=== PATIENT | male | born 1965 | race Caucasian/White ===

== ENCOUNTER 2023-11-06 07:50 | Outpatient (CLI) | payer OTHER, SELFPAY | END 2023-11-06 07:51 | disposition home or self-care (01) | LOC: NFLDREF 11-07 06:43 | PROVIDERS: PCP Family Medicine; Referring Provider Family Medicine; Visit Provider Family Medicine | DX: Z00.00 Encounter for general adult medical examination without abnormal findings (principal); E78.5 Hyperlipidemia, unspecified; Z12.5 Encounter for screening for malignant neoplasm of prostate | CPT/HCPCS: 80053; 80061; 84153 ==

== ENCOUNTER 2024-12-03 07:47 | Outpatient (CLI) | payer BC, SELFPAY | END 2024-12-03 07:48 | disposition home or self-care (01) | LOC: NFLDREF 12-13 00:14 | PROVIDERS: PCP Family Medicine; Referring Provider Family Medicine; Visit Provider Family Medicine | DX: E78.5 Hyperlipidemia, unspecified (principal); Z12.5 Encounter for screening for malignant neoplasm of prostate | CPT/HCPCS: 80053; 80061; G0103 ==

== ENCOUNTER 2024-12-28 08:45 | Outpatient (CLI) | payer BC, SELFPAY ==
--- NOTE | 2024-12-28 10:28 | P.ANES_ITS ---
Anesthesia Charges Start Date/Time Anesthesia Start Date: 12/28/24 Anesthesia Start Time: 09:52 Stop Date/Time Anesthesia Stop Date: 12/28/24 Anesthesia Stop Time: 10:22 Coding CPT Codes CPT Codes: PRO LWR INTST NDSC NOS - [id number] ([id number]) P2 - PATIENT W/MILD SYST DISEASE, QK - HOT KNIFE CUTTER 2-4 CNCRNT ANES PROC, QX - FUR REMODELER SVC W/ MD MED DIRECTION
--- NOTE | 2024-12-28 10:28 | W.ANESCHARGE ---
Anesthesia Charges Start Date/Time Anesthesia Start Date: 12/28/24 Anesthesia Start Time: 09:52 Stop Date/Time Anesthesia Stop Date: 12/28/24 Anesthesia Stop Time: 10:22 Coding CPT Codes CPT Codes: PRO LWR INTST NDSC NOS - [id number] ([id number]) P2 - PATIENT W/MILD SYST DISEASE, QK - ELECTRIC BLASTING CAP ASSEMBLER 2-4 CNCRNT ANES PROC, QX - BILINGUAL TEACHER AIDE SVC W/ MD MED DIRECTION
--- NOTE | 2024-12-28 10:36 | P.ANES_ITS ---
Anesthesia Charges Start Date/Time Anesthesia Start Date: 12/28/24 Anesthesia Start Time: 09:52 Stop Date/Time Anesthesia Stop Date: 12/28/24 Anesthesia Stop Time: 10:22 Coding CPT Codes CPT Codes: PRO LWR INTST NDSC NOS - [id number] ([id number]) P2 - PATIENT W/MILD SYST DISEASE, QK - ADMINISTRATIVE SUPPORT MANAGER 2-4 CNCRNT ANES PROC, QX - BUSINESS OBJECTS CONSULTANT SVC W/ MD MED DIRECTION
--- NOTE | 2024-12-28 10:36 | W.ANESCHARGE ---
Anesthesia Charges Start Date/Time Anesthesia Start Date: 12/28/24 Anesthesia Start Time: 09:52 Stop Date/Time Anesthesia Stop Date: 12/28/24 Anesthesia Stop Time: 10:22 Coding CPT Codes CPT Codes: PRO LWR INTST NDSC NOS - [id number] ([id number]) P2 - PATIENT W/MILD SYST DISEASE, QK - CASE REVIEWER 2-4 CNCRNT ANES PROC, QX - MEDIA MARKETING SPECIALIST SVC W/ MD MED DIRECTION
== END 2024-12-28 08:46 | disposition home or self-care (01) ==
LOC: OP CLINIC 08:46
PROVIDERS: PCP Family Medicine; Visit Provider Surgery
DX: Z12.11 Encounter for screening for malignant neoplasm of colon (principal); D12.0 Benign neoplasm of cecum; D12.3 Benign neoplasm of transverse colon; Z86.0100 Personal history of colon polyps, unspecified
CPT/HCPCS: 00811; 45385; 88305; J2704